=== PATIENT | female | born 1995 | race Caucasian/White ===

== ENCOUNTER 2017-02-13 19:00 | Emergency (ER) | payer OTHER ==
[2017-02-13 20:19] LABS: HEMOGLOBIN 12.4 gm/dl (12.3-15.3); RED BLOOD COUNT 4.07 M/UL (4.00-5.10); WHITE BLOOD COUNT 10.6 K/UL (4.5-11.0)
[2017-02-13 20:47] LABS: BUN/CREATININE RATIO 16 (0-10)
[2017-04-15] MEDS ORDERED: DICYCLOMINE HCL20 MG PO (08:33)
[2017-04-15] MEDS ORDERED: TRAZODONE HCL50 MG PO (08:34)
[2017-04-15] MEDS ORDERED: HYDROCODON-ACE1 EAC4 PO (08:34)
[2017-04-15] MEDS ORDERED: SERTRALINE HCL100 MG PO (08:34)
[2017-04-15] MEDS ORDERED: ADDERALL 5 MG TA5 MG PO (08:35)
[2017-04-15] MEDS ORDERED: PHENERGAN 25 MG25 M1 PO (11:50)
== END 2017-02-13 22:48 | disposition home or self-care (01) ==
LOC: ER1 19:00
PROVIDERS: Student in an Organized Health Care Education/Training Program
DX: R10.811 Right upper quadrant abdominal tenderness (principal); R11.2 Nausea with vomiting, unspecified; F90.9 Attention-deficit hyperactivity disorder, unspecified type; F32.9 Major depressive disorder, single episode, unspecified; F17.210 Nicotine dependence, cigarettes, uncomplicated; Z79.899 Other long term (current) drug therapy
CPT/HCPCS: 36415; 80053; 81001; 83690; 84703; 85025; 87086; 96361; 96374; 96375; 99284; J1885; J2405

== ENCOUNTER → 2017-04-14 | Outpatient (CLI) | payer OTHER ==
[~2017-04-14] MED LIST: ADDERALL 5 MG TA5 MG PO; DICYCLOMINE HCL20 MG PO; HYDROCODON-ACE1 EAC4 PO; PHENERGAN 25 MG25 M1 PO; SERTRALINE HCL100 MG PO; TRAZODONE HCL50 MG PO
== END ==
LOC: OPSV2 10:29
DX: Z01.812 Encounter for preprocedural laboratory examination (principal); K80.20 Calculus of gallbladder without cholecystitis without obstruction
CPT/HCPCS: 84703

== ENCOUNTER → 2017-04-15 | Day surgery (SDC) | payer OTHER ==
[~2017-04-15] VITALS: Ht 162.6 cm; Wt 68.9 kg
== END | disposition home or self-care (01) ==
LOC: OR 07:56
PROVIDERS: Surgery
PROC: 0FT44ZZ Resection of Gallbladder, Percutaneous Endoscopic Approach (ICD-10-PCS; principal; 2017-04-15 09:30)
DX: K80.10 Calculus of gallbladder with chronic cholecystitis without obstruction (principal); F90.9 Attention-deficit hyperactivity disorder, unspecified type; F17.210 Nicotine dependence, cigarettes, uncomplicated; Z79.899 Other long term (current) drug therapy; Z87.19 Personal history of other diseases of the digestive system
CPT/HCPCS: J0295; J1100; J1885; J2250; J2405; J2710; J3010; J7030; J7050; J7120

== ENCOUNTER 2022-04-13 18:11 | Emergency (ER) | payer OTHER ==
[2022-04-13 19:46] LABS: HEMOGLOBIN 13.1 gm/dl (12.3-15.3); RED BLOOD COUNT 4.49 M/UL (4.00-5.10); WHITE BLOOD COUNT 9.5 K/UL (4.5-11.0)
[2022-04-13 20:12] LABS: BUN/CREATININE RATIO 7 (0-10)
== END 2022-04-14 01:59 | disposition home or self-care (01) ==
LOC: ER1 18:11
PROVIDERS: Physician Assistant
DX: R07.89 Other chest pain (principal); F41.9 Anxiety disorder, unspecified; F17.210 Nicotine dependence, cigarettes, uncomplicated
CPT/HCPCS: 71045; 80053; 82550; 82553; 84484; 85025; 93005; 99285